=== PATIENT | female | born 1965 | race Caucasian/White ===

== ENCOUNTER 2021-04-20 14:45 | Observation (INO) | payer BC, SELFPAY ==
--- NOTE | ~2021-04-20 | CT_ITS ---
EXAMINATION: CTA brain carotid EXAM DATE: 04/20/2021 21:19 INDICATION: Right-sided paresthesia today. TECHNIQUE: Spiral CTA of the carotid arteries was performed with intravenous injection 100 cc of Omni paque 350. Axial, coronal, sagittal reformatted images reviewed. Additional reformatted images creat ed on dedicated 3-D workstation. NASCET comparable standard used to assess the degree of arterial st enosis. Spiral CT angiogram cerebral arteries performed with the same intravenous injection of contr ast. Source images of the brain CTA transferred to dedicated workstation for 3-D rotational image cre ation. Coronal, sagittal maximum intensity pixel images also reviewed. The dose-length product (DLP ) for this examination was 1094.53 mGy-cm. The exposure was tailored according to patient size, and iterative reconstruction (ASIR) was used as additional dose reduction technique. Correlation is made to head CT earlier same date. FINDINGS: The left vertebral artery is dominant. There is minimal bilateral carotid bulb arterial scl erosis with 0% stenosis bilaterally. There is no carotid or vertebral basilar arterial dissection or fibromuscular dysplasia. There are no cerebral artery aneurysms. There is symmetric cerebral artery arborization. There is persistent origin to the right posterior cerebral artery, normal anatomi c variant. The sagittal, transverse and sigmoid sinuses enhance normally, no venous sinus thrombosis. Internal cerebral veins also enhance normally. Incidental Findings: Mild cervical arthropathy without stenosis. IMPRESSION: 1. No acute carotid or intracranial findings. 2. Bilateral carotid bulb 0% stenosis. Reviewed, dictated and finalized at location A.
--- NOTE | ~2021-04-20 | CT_ITS ---
EXAMINATION: CT brain wo con DATE: 04/20/2021 15:07 INDICATION: Right-sided numbness. TECHNIQUE: Computed tomography (CT) of the head was performed without intravenous contrast. The mA wa s adjusted according to patient size. Iterative reconstruction technique was employed. The dose-lengt h product was 605.33 mGy-cm. COMPARISON: None FINDINGS: There is no intracranial hemorrhage, acute infarction, or abnormal intracranial mass lesion . The ventricles are normal in size. The paranasal sinuses are clear. The orbits are normal. The mast oid air cells are normal. IMPRESSION: 1. Normal brain. Reviewed, dictated and finalized at location A. IMPRESSION: 1. Normal brain.
--- NOTE | ~2021-04-20 | XR_ITS ---
EXAMINATION: XR chest 1V DATE: 04/20/2021 15:14 INDICATION: Right-sided numbness. TECHNIQUE: A single frontal view of the chest was obtained. COMPARISON: None. FINDINGS: The chest demonstrates clear lungs without pneumonia, pleural effusion, or pneumothorax. Th e heart size is normal. Surgical clips in the right upper quadrant are likely from cholecystectomy. IMPRESSION: 1. No acute cardiopulmonary disease. Reviewed, dictated and finalized at location A.
--- NOTE | ~2021-04-20 | MR_ITS ---
EXAMINATION: MR brain/brain stem wo/w con DATE: 04/21/2021 10:18 INDICATION: Transient ischemic attack. TECHNIQUE: Magnetic resonance imaging (MRI) of the brain and brainstem was performed without and with 14 mL MultiHance intravenous contrast. Sequences included sagittal and axial T1-weighted FSE, axial diffusion-weighted FS EPI, axial T2*-weighted GRE, axial T2-weighted FLAIR Propeller, and axial T2-we ighted Propeller. Postcontrast sequences included axial and coronal T1-weighted FSE. Apparent diffusi on coefficient (ADC) maps were created. COMPARISON: Head CT 04/20/2021 FINDINGS: There is an acute infarct in left thalamus. There are scattered areas of nonspecific increa sed T2-weighted signal intensity in the cerebral white matter, which is within normal limits for the patient's age. There is no intracranial hemorrhage or abnormal mass lesion. The ventricles are normal in size. The orbits are normal. The paranasal sinuses are clear. The mastoid air cells are normal. IMPRESSION: 1. Acute infarct in left thalamus. Reviewed, dictated and finalized at location A.
--- NOTE | 2021-04-20 14:52 | ECG_ITS ---
Measurements Intervals [place] Rate: 57 P: 9 SD: 155 QRS: -8 QRSD: 85 T: 33 QT: 399 QTc: 392 Interpretive Statements SINUS BRADYCARDIA EARLY PRECORDIAL R/S TRANSITION BASELINE ARTIFACT- II, III, AVR, AVF, V2-V6 BORDERLINE ECG Electronically Signed On 04-20-2021 20:58:19 CDT by Bello Moreno D.O.
[2021-04-20 14:54] VITALS: BP 179/104; PULSE 79; RESP 16; TEMP 37.4; O2SAT 97
[2021-04-20 15:24] LABS: Basophils Absolute Auto 0.1 K/mm3 (0.0-0.1); Basophils Percent Auto 0.6 % (0.2-1.2); Eosinophils Absolute Auto 0.2 K/mm3 (0-0.3); Eosinophils Percent Auto 2.3 % (0-4.4); Hematocrit 43.9 % (37.0-47.0); Hemoglobin 14.2 g/dL (12.0-15.0); Immature Granulocyte Absolute 0.12 K/mm3 (0.00-0.031); Immature Granulocyte Percent A 1.4 % (0-0.5); Lymphocytes Absolute Auto 2.65 K/mm3 (0.9-3.2); Lymphocytes Percent Auto 31.6 % (18.3-44.2); Mean Corpuscular HGB Conc 32.3 g/dl (32-36); Mean Corpuscular Hemoglobin 30.5 pg (26-34); Mean Corpuscular Volume 94.4 fl (80-100); Mean Platelet Volume 10.5 fl (7.4-10.4); Monocytes Absolute Auto 0.5 K/mm3 (0.1-0.6); Monocytes Percent Auto 5.6 % (2.6-8.5); Neutrophils Absolute Auto 4.9 K/mm3 (1.3-6.7); Neutrophils Percent Auto 58.5 % (45.5-73.1); Platelet Count Result 254 k/mm3 (150-375); Red Blood Count 4.65 M/mm3 (4.2-5.4); Red Cell Distribution Width 13.9 % (11.5-14.5); White Blood Count 8.4 K/mm3 (4.5-10.0)
[2021-04-20 15:34] LABS: Anion Gap 7 mmol/L (8-16); Blood Urea Nitrogen 10 mg/dL (7-17); Calcium 9.3 mg/dL (8.4-10.2); Carbon Dioxide 28 mmol/L (22-30); Chloride 103 mmol/L (98-107); Estimated CRCL calculation 59 ml/min; Estimated Glomerular Filt Rate > 60; Glucose 103 mg/dL (65-110); Potassium 3.8 mmol/L (3.4-5.0); Sodium 138 mmol/L (137-145)
[2021-04-20 15:37] LABS: INR 0.8; Prothrombin Time 11.3 Seconds (11.1-14.7)
[2021-04-20 15:46] LABS: Troponin I < 0.012 ng/mL (0.000-0.034)
[2021-04-20 20:04] VITALS: BP 180/98; PULSE 76; RESP 13
[2021-04-20 20:11] LABS: Glucose Point of Care 95 mg/dl (65-105)
[2021-04-20] MEDS: ASPIRIN 81 MG CHEWABLE TABLET 324 MG PO (21:20)
--- NOTE | 2021-04-20 21:20 | ED.NEUROSD ---
HPI - Neuro Symptoms/Deficit General Chief Complaint: Neuro Symptoms/Deficit Stated Complaint: INTERMITTENT R SIDED NUMBNESS SINCE 1100 Time Seen by Provider: 04/20/21 20:13 History of Present Illness HPI Narrative: Patient presents with concerns for numbness. She reports she 3 episodes today. She was a first episode was around 11:00 she described paresthesias to her right arm and right leg mass for approximately 5 minutes and resolved she rested ate something symptoms occurred again in the early afternoon this time she had paresthesias on her right face right arm and right leg this time she also noted weakness in her right arm. And while sitting in the waiting room she reported again another episode of numbness in the right arm and right leg. She is currently with out symptoms. All episodes last less than 5 minutes and resolved without intervention. There is no associated chest pain, shortness of breath, nausea, vomiting, headache. She denies any vision changes. Related Data Home Medications Medication Instructions Recorded Confirmed estradiol 1 patch TRANSDERMAL 2XW 04/20/21 04/20/21 Allergies Allergy/AdvReac Type Severity Reaction Status Date / Time sulfamethizole Allergy Unknown Verified 01/23/19 08:02 trimethoprim Allergy Unknown Verified 01/23/19 08:02 Review of Systems Review of Systems: CONSTITUTIONAL: Denies fever, chills, or sweats. EYES: Denies visual changes, redness, or discharge. ENT: Denies rhinorrhea, congestion, sore throat, or otalgia. CARDIOVASCULAR: Denies chest pain, palpitations, or edema. RESPIRATORY: Denies cough or dyspnea. GASTROINTESTINAL: Denies abdominal pain, nausea, vomiting, or diarrhea. GENITOURINARY: Denies dysuria or hematuria. SKIN: Denies rash or itching. MUSCULOSKELETAL: Denies back pain, joint pain, or myalgia. NEUROLOGIC: Denies headache, ative numbness, dizziness, or ative weakness. PSYCHIATRIC: Denies anxiety or depression. All systems reviewed & are unremarkable except as noted in HPI and below [facility] Family History Family History (Updated 04/20/21 @ 23:58 by Erica Porras RN) Father Acute myocardial infarction Hypertension Mother Hypertension Social History Social History Years smoked: 40 Smoking status: Current every day smoker Tobacco type: cigarettes Alcohol intake: current Drinks per week: 4 Substance use: never Spiritual care concerns: No Exam Narrative: GENERAL: Well-appearing, well-nourished, and in no acute distress. HEAD: Normocephalic, atraumatic. EYES: PERRLA and EOMI. ENT: Nares clear, no rhinorrhea or epistaxis. Mucous membranes moist. NECK: Supple. No masses. No JVD CHEST: Clear to auscultation. No respiratory distress. No wheezes rales or rhonchi HEART: Regular rate and rhythm. No murmur heard. Normal peripheral pulses. ABDOMEN: Soft, nontender, nondistended, normal active bowel sounds. EXTREMITIES: Normal range of motion. No edema. SKIN: Warm, dry, no rash. NEURO: Cranial nerves II through XII intact, 5 out of 5 strength in all extremities, sensation intact to light touch in all extremities alert and oriented x3. PSYCH: Normal mood and affect. Course Consultations Consultation #1: discussed case with neurology recommending admission for TIA evaluation. CTA ordered will discuss with hsopitalist Date: 04/20/21 Time: 21:13 Vital Signs Vital signs: Vital Signs Temperature 37.4 C 04/20/21 14:54 Pulse Rate 79 04/20/21 14:54 Respiratory Rate 16 04/20/21 14:54 Blood Pressure 179/104 H 04/20/21 14:54 Pulse Oximetry 97 04/20/21 14:54 Temperature 37.0 C 04/21/21 00:00 Pulse Rate 59 L 04/21/21 00:30 Respiratory Rate 20 04/21/21 00:00 Blood Pressure 183/85 H 04/21/21 00:00 Pulse Oximetry 99 04/21/21 00:00 MDM - Neuro Symptoms/Deficit MDM Narrative Medical decision making narrative: Patient presented with intermittent paresthesias on
[2021-04-20] MEDS: SODIUM CHLORIDE 0.9% IV 1,000 ML 999 ML IV CONT (21:21)
[2021-04-20 21:48] LABS: Alanine Aminotransferase 15 U/L (4-35); Albumin Level 4.4 g/dL (3.5-5.1); Alkaline Phosphatase 81 U/L (38-126); Aspartate Amino Transferase 21 U/L (14-36); Bilirubin,Total 0.2 mg/dL (0.2-1.3)
[2021-04-20 22:13] VITALS: BP 157/97; PULSE 57; RESP 15; O2SAT 99
[2021-04-20 22:29] LABS: Add Urine Microscopic? NO; Appearance Urine Clear (Clear); Bilirubin Urine Negative (Negative); Blood Urine Negative (Negative); Color Urine Yellow (Yellow); Glucose Urine UA Negative (Negative); Ketones Urine Negative (Negative); Leukocyte Esterase Ur Negative LEU/UL (Negative); Nitrate Urine Negative (Negative); Protein Urine Negative (Negative); Urobilinogen Urine 0.2 mg/dL (<2.0); pH Urine 6.5 (5.0-9.0)
[2021-04-20 22:31] VITALS: BP 155/84; PULSE 64; RESP 17; O2SAT 98
[2021-04-20] MEDS: CLOPIDOGREL BISULFATE 300 MG TABLET PO (22:46)
--- NOTE | 2021-04-20 22:48 | PC.NURSE ---
Pt notified this RN that the numbness in her face returned. This RN notified Dr. Easley who came to the room to reexamine the patient.
[2021-04-20 23:32] VITALS: BP 159/87; PULSE 78; RESP 19; O2SAT 99
--- NOTE | 2021-04-20 23:43 | ADMGEN ---
This patient, Aruna Demarco, was admitted to 2 Medical Room 258-01. Patient/family oriented to hospital policies and general routines including ID bracelet, bed and alarms, visiting hours, pain management, procedures, bathroom and other care routines, personal items, smoking policy, room service/diet, and visiting hours. Information on how to activate the Rapid Response Team has been discussed. Patient/Family are encouraged to report perceived risks to care and to ask questions if they do not understand what they are told or what they should do.
[2021-04-21] VITALS (12 sets, daily range): BP systolic 127–183; BP diastolic 58–96; PULSE 50–95; RESP 12–20; TEMP 35.9–37; O2SAT 98–100; BMI 28.1
--- NOTE | 2021-04-21 | ECHO_ITS ---
Patient Info Name: Aruna Demarco Age: 55 years : 1965 Gender: Female Ht: 64 in Wt: 164 lbs BSA: 1.85 m2 HR: 65 bpm BP: 143 / 90 mmHg Heart Rhythm: Sinus Rhythm Technical Quality: Good Exam Date: 04/21/2021 3:00 PM [facility]: 258 Patient Status: Outpatient Admit Date: 04/20/2021 Staff Ordering Physician: Geetha Salazar DO Manager Salt: Gogo Holly RDCS Attending Provider: Fe Guerrero PA-C Referring Physician: Martin HAGER; Exam Type: CA echo doppler color flow Study Info Indications - TIA Complete two-dimensional, color flow and Doppler transthoracic echocardiogram is performed. Summary 1. Complete two-dimensional, color flow and Doppler transthoracic echocardiogram is performed. 2. Left ventricular chamber dimension is normal. 3. Left ventricular systolic function is normal, estimated at 60-65%. 4. There is no increased left ventricular wall thickness. 5. The left ventricular diastolic function is grade I diastolic dysfunction. 6. There is mild tricuspid valve regurgitation. Left Ventricle Left ventricular chamber dimension is normal. Left ventricular systolic function is normal, estimated at 60-65%. There is no increased left ventricular wall thickness. The left ventricular diastolic function is grade I diastolic dysfunction. Right Ventricle Right ventricular chamber dimension is normal. Right ventricular systolic function is normal. Left Atria Left atrial chamber dimension is normal. Right Atria Right atrial chamber dimension is normal. Atrial Septum Intact interatrial septum visualized by color flow imaging. Aortic Valve The aortic valve is probable trileaflet. There is mild aortic valve sclerosis. There is no aortic valve stenosis. There is trace aortic valve regurgitation. Pulmonic Valve The pulmonic valve is normal. There is no pulmonic valve stenosis. There is trace pulmonic regurgitation. Mitral Valve The mitral valve has normal leaflets. There is no mitral valve stenosis. There is trace mitral valve regurgitation. Tricuspid Valve The tricuspid valve leaflets are normal. There is no significant tricuspid valve stenosis. There is mild tricuspid valve regurgitation. No pulmonary hypertension, estimated pulmonary arterial systolic pressure is 28 mmHg. Pericardium/Pleural The pericardium appears normal. There is no pericardial effusion. Inferior Vena Cava Normal inferior vena cava with >50% collapse upon inspiration consistent with normal right atrial pressure, 10 mmHg. Aorta The aortic root size at the sinus of Valsalva is normal. The prox ascending aorta size is normal. Left Ventricular Outflow Tract Name Value Normal LVOT 2D LVOT Diameter 2.0 cm LVOT Doppler LVOT Peak Gradient 4 mmHg LVOT Mean Gradient 2 mmHg LVOT VTI 22 cm LVOT VTI/AV VTI Ratio 0.9 LVOT Stroke Volume 69 ml LVOT CO 13.8 l/m
--- NOTE | 2021-04-21 04:59 | PM.IMHP ---
H&P: HPI History of Present Illness Date/Time: 04/21/21 01:30 Chief Complaint: Right arm and leg numbness Narrative: 55-year-old female with a past medical history of hypertension, anxiety and recent social stressors who presented to the ER via private vehicle due to evaluation of right upper and lower extremity numbness and heaviness. Patient reports that she was at work around 11:00 a.m. when she noticed that her right arm and leg were tingling and felt like they were his sleep. She also has had a sensation of lightheadedness. This sensation lasted about 5 minutes and then resolved. She also had some associated brief period of tunnel vision during the event. She then had a recurrent episode around 2:00 p.m. wears she had the upper and lower extremity numbness and her extremity felt more heavy. She also had some tingling on the right side of her mouth and felt as if she might have had some lidocaine. This episode also lasted 5-10 minutes. She stated that the symptoms had completely resolved. However the time of my evaluation she admits that her tingling in her arm and leg never actually completely resolved. She thought that the tingling she was having in her arm in the ER was due to the blood pressure cuff blowing up. She initially did not want to come into the ER but her environmental health safety manager insisted that she come to the ER. They drove her in by private vehicle as the patient refused to come via EMS. The patient's blood pressures were modestly elevated when she came into the ER and spike as high as 183/85. She reports that a distant history of hypertension that actually resolved after she had her hysterectomy in approximately 2004. She reports that the numbness and tingling in her face resolved. She was never having any difficulty speaking. She had her coworkers look at her face and they did not notice any facial asymmetry. She has not been having any difficulty with dropping objects. She has not been having difficulty with ambulation. She has never had any symptoms similar to this. She has not noticed any vision changes. She denies any headache. She does feel quite anxious. She does admit that she has been under increased stressors over the last couple of weeks. Her 14-year-old dog unexpectedly 2 weeks ago. A few days after that she found out that her friends are getting a divorce after 26 years of marriage and she has been having increased stress at work as well. She is quite emotional when discussing these recent events. She reports that she has been fully vaccinated against COVID-19 sent August and September. Review of Systems Review of Systems: 12 systems were reviewed with pertinent positives and negatives per HPI. Except as documented in the HPI, all other systems were reviewed and are negative. [facility] Past Medical History Medical History (Updated 04/21/21 @ 06:05 by Geetha Salazar DO) Continuous tobacco abuse Essential hypertension Postmenopausal Surgical History Surgical History (Updated 04/21/21 @ 06:06 by Geetha Salazar DO) H/O bilateral oophorectomy (~2005) H/O hysterectomy for benign disease (~2004) History of dilation and curettage X2 due to miscarriage History of laparoscopic cholecystectomy (~2017) History of surgery on right wrist Tendon surgery and a 2nd surgery for bone spur Family History Family History Father Acute myocardial infarction Hypertension Mother Hypertension Social History Social History (Updated 04/21/21 @ 06:19 by Geetha Salazar DO) Social History: She lives in [facility] with her . They have 2 children and 3 grandchildren. She works at a desk job. She has smoked up to half a pack of cigarettes per day in the past but is down to 5 cigarettes a day currently. She drinks about 4 beers a week. She denies any illicit substance use. Code status: Full code Surrogate decision maker: Smoking pack
[2021-04-21 08:25] LABS: Cholesterol 211 mg/dL (0-200); HDL Direct 46 mg/dL; Triglycerides 186 mg/dL (<150)
[2021-04-21 08:36] LABS: LDL Cholesterol Direct 123 mg/dL
[2021-04-21] MEDS: ASPIRIN 325 MG TABLET PO (09:05)
[2021-04-21] MEDS: LORazepam INJ (*CRX) 2 MG/ML VIAL 1 MG IV PUSH (09:33)
[2021-04-21] MEDS: ATORVASTATIN 20 MG TABLET PO (11:21)
--- NOTE | 2021-04-21 15:49 | PM.IMPN ---
Progress Note: A&P Assessment and Plan (1) CVA (cerebral vascular accident): Code(s): I63.9 - Cerebral infarction, unspecified Status: Acute Assessment and Plan: MRI and symptoms consistent with acute CVA -MRI shows acute infarct in left thalamus. CTA negative. -Pt was placed on aspirin therapy as well as atorvastatin (ldl 123) -she will need to quit smoking -plan for heart monitor to assess for afib outpt. I hope this can be placed tomorrow after discharge with the heart care group. If not, she will have to follow up with her pcp. Plan discussed. -neurology consulted -await echo -likely d/c 04/22/21 (2) Essential hypertension: Code(s): I10 - Essential (primary) hypertension Status: Acute Assessment and Plan: Last bp 156/58 but was much higher earlier in the stay -consider starting oral medication if she continues to be high after 48 hours (allowing for permissive hypertnesion) (3) Continuous tobacco abuse: Code(s): Z72.0 - Tobacco use Status: Acute Assessment and Plan: Pt states she understand she needs to quit smoking and plans to try Time Spent With Patient Time with patient: 25 - 35 minutes Subjective Date/time seen: 04/21/21 15:49 Interval history: Pt is a 55-year-old female here for CVA. Patient was seen today and is feeling great. She continues to have right-sided tingling but it has improved and she has no weakness. No problems with speech, asymmetry, walking or swallowing. She denies chest pain, palpitations, shortness of breath, nausea or vomiting. She currently smokes and understands the importance of stopping. I spoke to her extensively about stroke and the plan of care. She agrees. Review of Systems Review of Systems: All systems reviewed & are unremarkable except as noted in HPI and below Exam Narrative: General: Well developed well nourished patient in NAD HEENT: normocephalic Neck: supple Neuro: Alert and oriented x4. CN 2-12 intact. Stregnth 5/5 UE and LE. gait normal CV:RRR. tele without abnormal review Resp:CTA Abd: Soft, non distended. No pain to palpation. Positive bowel sounds Extremities: No swelling, erythema, or pain to palpation. Objective Data Vital Signs Vital Signs: Vital Signs - 24 hr 04/20/21 20:04 08/25/21 22:13 04/20/21 22:31 Temperature Pulse Rate 76 57 L 64 Respiratory Rate 13 15 17 Blood Pressure 180/98 H 157/97 H 155/84 H Pulse Oximetry 99 98 04/20/21 23:32 04/21/21 00:00 04/21/21 00:30 Temperature 98.6 F Pulse Rate 78 59 L 59 L Respiratory Rate 19 20 Blood Pressure 159/87 H 183/85 H Pulse Oximetry 99 99 04/21/21 02:49 04/21/21 04:00 04/21/21 04:35 Temperature 97 F L Pulse Rate 67 50 L 57 L Respiratory Rate 20 Blood Pressure 142/87 H 143/90 H Pulse Oximetry 100 04/21/21 08:00 04/21/21 12:00 04/21/21 14:00 Temperature 96.7 F L Pulse Rate 67 95 79 Respiratory Rate 12 Blood Pressure 156/58 H Pulse Oximetry 100 04/21/21 14:21 Temperature Pulse Rate Respiratory Rate Blood Pressure Pulse Oximetry 98 Intake/Output Intake/Output: Intake & Output 04/18/21 04/19/21 04/20/21 04/21/21 23:59 23:59 23:59 23:59 Intake Total 1000 550 Output Total 600 Balance 1000 -50 Meds/Results Medications: Active Medications Generic Name Dose Route Start Last Admin Trade Name Freq PRN Reason Stop Dose Admin Aspirin 325 mg 04/21/21 08:00 04/21/21 09:05 Aspirin 325 Mg Tablet PO 325 mg DAILY@0800 KALLI Administration Atorvastatin Calcium 20 mg 04/21/21 09:00 04/21/21 11:21 Atorvastatin 20 Mg Tablet PO 20 mg DAILY KALLI Administration Ondansetron HCl 4 mg 04/20/21 22:07 Ondansetron Inj 4 Mg/2 Ml Vial IV PUSH Q4H PRN Nausea Radiology Results: ITS Impressions Head CT 04/20/21 15:08 IMPRESSION: 1. Normal brain. Chest X-Ray 04/20/21 15:15 IMPRESSION: 1. No acute cardiopulmonary disease.
--- NOTE | 2021-04-21 16:11 | WPDNEURCNPN ---
Assessment and Plan Additional Plan with normal blood studies, and MRI of the brain and brainstem showing acute infarct of the left thalamus and CTA with no evidence of aneurysm or intra or extracranial stenosis, negative chest x-ray, normal CT scan of the brain in the ER will most likely continue the aspirin eighty 81 mg daily and Plavix seventy five mg daily for six weeks and we are still waiting for the echocardiogram report further adjustment will be made accordingly and discussion also with the patient Consult date: 04/21/21 Time Seen: 09:30 HPI: Aruna Demarco is a 55 year old female admitted to the hospital for the complaints of right upper and right lower extremity numbness in addition to the history of ongoing 1. Hypertension 2. Recent social stressors. Patient presented to the emergency room via private vehicle due to evaluation of the right upper and right lower extremity numbness and heaviness she was reportedly at work around 11:00 a.m. when she noted her right upper extremity and lower extremity were tingling and felt this as if they were asleep at the same time she had a sensation of lightheadedness which lasted for about 5 minutes along with the brief periods of tunnel vision during the event then she had a recurrent episode around 2:00 p.m. where her upper and lower extremity became numb and she felt very heavy she had the same tingling sensation he right side of her mouth as if she had some lidocaine the whole episode lasted for 5 to 10 minutes then completely resolved by the time she was seen by the hospitalist the symptoms are completely gone she refused to come via EMS and was brought to the hospital emergency room by the family her blood pressure was noted leave 183/85 her tingling has completely resolved there was no history of facial asymmetry as observed by the coworkers and there was no complaint of difficulties ambulation. her past history is consistent with 1. Hypertension 2. Tobacco abuse, Review of Systems Review of Systems: All systems reviewed & are unremarkable except as noted in HPI and below PMFSH Past Medical History Medical History Continuous tobacco abuse Essential hypertension Postmenopausal Surgical History Surgical History H/O bilateral oophorectomy (~2005) H/O hysterectomy for benign disease (~2004) History of dilation and curettage X2 due to miscarriage History of laparoscopic cholecystectomy (~2018) History of surgery on right wrist Tendon surgery and a 2nd surgery for bone spur Family History Family History Father Acute myocardial infarction Hypertension Mother Hypertension Social History Social History Social History: She lives in [facility] with her . They have 2 children and 3 grandchildren. She works at a desk job. She has smoked up to half a pack of cigarettes per day in the past but is down to 5 cigarettes a day currently. She drinks about 4 beers a week. She denies any illicit substance use. Code status: Full code Surrogate decision maker: Smoking packs per day: 0.5 Smoking cigarettes per day: 10.0 Years smoked: 40 Smoking pack-years: 20.00 Smoking status: Current every day smoker Tobacco type: cigarettes Alcohol intake: current Drinks per week: 4 Substance use: never Spiritual care concerns: No Meds Home Medications and Allergies Home Medications Medication Instructions Recorded Confirmed Type estradiol 1 patch TRANSDERMAL 2XW 04/20/21 04/20/21 History Allergies Allergy/AdvReac Type Severity Reaction Status Date / Time sulfamethizole Allergy Unknown Verified 01/23/19 08:02 trimethoprim Allergy Unknown Verified 01/23/19 08:02 Vital Signs Vital Signs - 24 hr 04/20/21 20:04 04/20/21 22:13 04/20/21
[2021-04-21] MEDS: ACETAMINOPHEN 325 MG TABLET 650 MG PO ×2 (17:25→23:05)
[2021-04-21] MEDS: hydrALAZINE HCL 20 MG/ML VIAL 10 MG IV PUSH (23:04)
--- NOTE | 2021-04-21 23:08 | PC.NURSE ---
B/p juan Christine called and orders received.
[2021-04-22] VITALS: BP 131/79; PULSE 71; PULSE 72; RESP 22; TEMP 36.2; O2SAT 99
[2021-04-22 04:00] VITALS: PULSE 69
[2021-04-22 05:23] VITALS: BP 131/76; PULSE 80; RESP 20; TEMP 36.4; O2SAT 97
[2021-04-22] MEDS: ACETAMINOPHEN 325 MG TABLET 650 MG PO (06:35)
[2021-04-22 08:00] VITALS: BP 130/74; PULSE 78; PULSE 87; RESP 20; TEMP 36.6; O2SAT 92
[2021-04-22] MEDS: ASPIRIN 325 MG TABLET PO (08:08)
[2021-04-22] MEDS: ATORVASTATIN 20 MG TABLET PO (08:08)
[2021-04-22 09:04] LABS: Basophils Percent Auto 0.6 % (0.2-1.2); Eosinophils Absolute Auto 0.2 K/mm3 (0-0.3); Eosinophils Percent Auto 2.3 % (0-4.4); Hematocrit 45.3 % (37.0-47.0); Hemoglobin 14.8 g/dL (12.0-15.0); Immature Granulocyte Absolute 0.05 K/mm3 (0.00-0.031); Immature Granulocyte Percent A 0.7 % (0-0.5); Lymphocytes Absolute Auto 2.26 K/mm3 (0.9-3.2); Lymphocytes Percent Auto 32.2 % (18.3-44.2); Mean Corpuscular HGB Conc 32.7 g/dl (32-36); Mean Corpuscular Hemoglobin 30.6 pg (26-34); Mean Corpuscular Volume 93.8 fl (80-100); Mean Platelet Volume 10.1 fl (7.4-10.4); Monocytes Absolute Auto 0.3 K/mm3 (0.1-0.6); Monocytes Percent Auto 4.7 % (2.6-8.5); Neutrophils Absolute Auto 4.2 K/mm3 (1.3-6.7); Neutrophils Percent Auto 59.5 % (45.5-73.1); Platelet Count Result 241 k/mm3 (150-375); Red Blood Count 4.83 M/mm3 (4.2-5.4); Red Cell Distribution Width 13.9 % (11.5-14.5)
[2021-04-22 09:16] LABS: Magnesium 2.1 mg/dL (1.6-2.3); Phosphorus 2.7 mg/dL (2.5-4.5)
[2021-04-22 09:27] LABS: Alanine Aminotransferase 24 U/L (4-35); Albumin Level 4.5 g/dL (3.5-5.1); Alkaline Phosphatase 75 U/L (38-126); Anion Gap 12 mmol/L (8-16); Aspartate Amino Transferase 25 U/L (14-36); Bilirubin,Total 0.6 mg/dL (0.2-1.3); Blood Urea Nitrogen 7 mg/dL (7-17); Calcium 9.6 mg/dL (8.4-10.2); Carbon Dioxide 19 mmol/L (22-30); Chloride 107 mmol/L (98-107); Estimated CRCL calculation 88 ml/min; Estimated Glomerular Filt Rate > 60; Glucose 213 mg/dL (65-110); Potassium 3.7 mmol/L (3.4-5.0); Sodium 138 mmol/L (137-145)
--- NOTE | 2021-04-22 10:20 | WPDNEUROPN ---
Objective Data Vital Signs Vital Signs: Vital Signs - 24 hr 04/21/21 12:00 04/21/21 14:00 04/21/21 14:21 Temperature 35.9 C L Pulse Rate 95 79 Respiratory Rate 12 Blood Pressure 156/58 H Pulse Oximetry 100 98 04/21/21 16:00 04/21/21 20:00 04/21/21 20:54 Temperature 36.2 C L Pulse Rate 87 77 77 Respiratory Rate 20 20 Blood Pressure 127/96 H Pulse Oximetry 98 98 04/22/21 00:00 04/22/21 04:00 04/22/21 05:23 Temperature 36.2 C L 36.4 C L Pulse Rate 72 69 80 Respiratory Rate 22 H 20 Blood Pressure 131/79 131/76 Pulse Oximetry 99 97 Intake/Output Intake/Output: Intake & Output 04/19/21 04/20/21 04/21/21 04/22/21 23:59 23:59 23:59 23:59 Intake Total 1000 550 390 Output Total 1200 500 Balance 1000 -650 -110 Meds/Results Medications: Active Medications Generic Name Dose Route Start Last Admin Trade Name Freq PRN Reason Stop Dose Admin Acetaminophen 650 mg 04/21/21 16:45 04/22/21 06:35 Acetaminophen 325 Mg Tablet PO 650 mg Q6H PRN Administration Mild Pain (1-3) or Fever Aspirin 325 mg 04/21/21 08:00 04/22/21 08:08 Aspirin 325 Mg Tablet PO 325 mg DAILY@0800 KALLI Administration Atorvastatin Calcium 20 mg 04/21/21 09:00 04/22/21 08:08 Atorvastatin 20 Mg Tablet PO 20 mg DAILY KALLI Administration Ondansetron HCl 4 mg 04/20/21 22:07 Ondansetron Inj 4 Mg/2 Ml Vial IV PUSH Q4H PRN Nausea Radiology Results: ITS Impressions Head CT 04/20/21 15:08 IMPRESSION: 1. Normal brain. Chest X-Ray 04/20/21 15:15 IMPRESSION: 1. No acute cardiopulmonary disease. Head/Neck CTA 04/21/21 07:19 IMPRESSION: 1. No acute carotid or intracranial findings. 2. Bilateral carotid bulb 0% stenosis. Brain MRI 04/21/21 10:24 IMPRESSION: 1. Acute infarct in left thalamus. Labs Labs: Laboratory Results - last 24 hr 04/22/21 04/22/21 04/22/21 08:48 08:48 08:48 WBC 7.0 RBC 4.83 Hgb 14.8 Hct 45.3 MCV 93.8 MCH 30.6 MCHC 32.7 RDW 13.9 Plt Count 241 MPV 10.1 Immature Gran % (Auto) 0.7 H Neut % (Auto) 59.5 Lymph % (Auto) 32.2 [place] % (Auto) 4.7 Eos % (Auto) 2.3 Baso % (Auto) 0.6 Lymph # (Auto) 2.26 [place] # (Auto) 0.3 Eos # (Auto) 0.2 Baso # (Auto) 0.0 Abs Immat Gran (auto) 0.05 H Absolute Neuts (auto) 4.2 Absolute Nucleated RBC 0.0 Nucleated RBC % 0.0 Sodium 138 Potassium 3.7 Chloride 107 Carbon Dioxide 19 L Anion Gap 12 BUN 7 Creatinine 0.60 L Estim Creat Clear Calc 88 Estimated GFR > 60 Glucose 213 H Calcium 9.6 Phosphorus 2.7 Magnesium 2.1 Total Bilirubin 0.6 AST 25 ALT 24 Alkaline Phosphatase 75 Total Protein 7.0 Albumin 4.5 Quality VTE Prophylaxis VTE prophylaxis: mechanical ordered (SCDs)
--- NOTE | 2021-04-22 11:36 | PM.DS ---
DS: Admitting Diagnosis Admitting Diagnosis right sided numbness and weakness, CVA, HTN DS: Discharge Diagnosis Discharge Diagnosis (1) CVA (cerebral vascular accident): Code(s): I63.9 - Cerebral infarction, unspecified Status: Acute Assessment and Plan: MRI and symptoms consistent with acute CVA -MRI shows acute infarct in left thalamus. CTA negative. -Pt was placed on aspirin therapy as well as atorvastatin (ldl 123) -she will need to quit smoking -plan for heart monitor to assess for afib outpt. I hope this can be placed tomorrow after discharge with the heart care group. If not, she will have to follow up with her PCP. Plan discussed. -LIPID panel mildly elevated: trig 181, total chol 211 -neurology consulted - spoke with Dr. Kemp, will continue patient on daily 81mg aspirin, 75 mg Plavix daily for 6 weeks then discontinue the Plavix, and take daily 40mg Lipitor. -ECHO report: Left ventricular chamber dimension is normal.EF 60-65%.no increased left ventricular wall thickness. left ventricular diastolic function is grade I diastolic dysfunction.no acute valvular concerns.No pulmonary hypertension,no pericardial effusion. (2) Essential hypertension: Code(s): I10 - Essential (primary) hypertension Status: Acute Assessment and Plan: Last BP 131/76 but was much higher earlier in the stay -consider starting oral medication with PCP (allowing for permissive hypertension) -be sure to check your Blood Pressure and Heart Rate (pulse) every morning and evening. Blood pressure goals are top # 90-160, lower # 60-90. Heart Rate goals (pulse) 60-90. With your new medications Plavix and Aspirin, you are at greater risk for bleeding internally and externally with any fall or cut. If you have any questions about your new medications or your CVA - call your Neurologist. They will have to approve you driving and working again. If blood pressure elevated, recheck on your other arm in 2-5 minutes, then if still elevated call your Primary Care provider for further instructions. (3) Continuous tobacco abuse: Code(s): Z72.0 - Tobacco use Status: Acute Assessment and Plan: Pt states she understand she needs to quit smoking and plans to try DS: Summary Hospital Course Hospital Course: CVA found on scan, Slightly improved sensation and mobility, PT/OT eval, Neurologist eval., patient eating/drinking/ambulating well. Neurologist ok'd discharge to home in 81mg ASA daily, 75mg Plavix daily for 6 weeks, and increasing Lipitor to 40mg daily. She will need to F/U with Neurologist and PCP. Time Spent with Patient Time attestation: Total time spent providing and/or coordinating discharge services:60 minutes Exam Narrative: examination revealed her to be awake alert cooperative. no obvious acute distress head normocephalic with no cranial bruit ear nose throat examination normal neck supple with no cervical bruit no thyromegaly no lymphadenopathy heart regular with no murmur lungs clear to auscultation with no crepitations abdomen is soft nontender with normal bowel sounds skin normal musculoskeletal exam is normal neurological he is awake alert oriented x3 his speech nor dysphasic not dysarthric or dysphonic the cranial examination is normal motor and sensory examination normal DS: Data Data Completed and Pending Labs on day of discharge: Labs from last 24 hours 04/22/21 04/22/21 04/22/21 08:48 08:48 08:48 WBC 7.0 RBC 4.83 Hgb 14.8 Hct 45.3 MCV 93.8 MCH 30.6 MCHC 32.7 RDW 13.9 Plt Count 241 MPV 10.1 Immature Gran % (Auto) 0.7 H Neut % (Auto) 59.5 Lymph % (Auto) 32.2 [place] % (Auto) 4.7 Eos % (Auto) 2.3 Baso % (Auto) 0.6 Lymph # (Auto) 2.26 [place] # (Auto) 0.3 Eos # (Auto) 0.2 Baso # (Auto) 0.0 Abs Immat Gran (auto) 0.05 H Absolute Neuts (auto) 4.2 Absolute Nucleated RBC 0.0 Nucleated RBC % 0.0 Sodium 138
[2021-04-22 12:00] VITALS: PULSE 76
== END 2021-04-22 15:05 | disposition home or self-care (01) ==
LOC: ANHED 22:10 → ANH2MED 23:12
PROVIDERS: Emergency Medicine; Nurse Practitioner; Admitting Provider Internal Medicine; Emergency Provider Emergency Medicine; Visit Provider Hospitalist
DX: I63.9 Cerebral infarction, unspecified (principal); G81.91 Hemiplegia, unspecified affecting right dominant side; I10 Essential (primary) hypertension; I07.1 Rheumatic tricuspid insufficiency; F41.9 Anxiety disorder, unspecified; F17.210 Nicotine dependence, cigarettes, uncomplicated
CPT/HCPCS: 36415; 70450; 70496; 70498; 70553; 71045; 80048; 80053; 80061; 80076; 81003; 82948; 83735; 84100; 84484; 85025; 85610; 85730; 93005; 93306; 96361; 96374; 96375; 97161; 97165; 99285; A9270; A9577; G0378; J0360; J2060; J7030; Q9967